=== PATIENT | male | born 1985 | race American Indian/Alaskan Native ===

== ENCOUNTER 2016-08-08 00:01 | Observation (INO) | payer MEDICAID ==
[2016-08-08 00:02] VITALS: BMI 22.9
[2016-08-08 00:21] VITALS: O2SAT 99
--- NOTE | 2016-08-08 02:45 | C.PDOC ---
History Of Present Illness Patient is a 30 year old male brought in by [facility] for public intoxication. Patient is walking and talking fine in ER. Denies any nausea, vomiting, diarrhea , or injury. Time Seen by Provider: 08/08/16 01:04 Chief Complaint (Nursing): Substance Abuse History Per: Patient History/Exam Limitations: no limitations, intoxication Onset/Duration Of Symptoms: Hrs Current Symptoms Are (Timing): Still Present Suicide/Self Injury Attempted (Context): None Modifying Factor(s): Alcohol Additional History Per: Law Enforcement Past Medical History Reviewed: Historical Data, Nursing Documentation, Vital Signs Vital Signs: Last Vital Signs Temp 97.2 F L 08/08/16 00:15 Pulse 78 08/08/16 00:15 Resp 20 08/08/16 00:15 BP 113/72 08/08/16 00:15 Pulse Ox 99 08/08/16 03:14 - [facility] Procedures DETOXIFICATION SERVICES FOR SUBSTANCE ABUSE TREATMENT (12/23/15) PSYCHIA INTERV/EVAL NEC (07/15/13) Family History: States: Unknown Family Hx - Social History Hx Tobacco Use: Yes Hx Alcohol Use: Yes Hx Substance Use: Yes (PCP) - Immunization History Hx Tetanus Toxoid Vaccination: No Hx Influenza Vaccination: No Hx Pneumococcal Vaccination: No Review Of Systems Except As Marked, All Systems Reviewed And Found Negative. Constitutional: Negative for: Fever, Chills Cardiovascular: Negative for: Chest Pain, Palpitations Respiratory: Negative for: Cough, Shortness of Breath Gastrointestinal: Negative for: Nausea, Vomiting Physical Exam - Physical Exam Appears: Well, Non-toxic, Other (ETOH on breath) Skin: Normal Color, Warm, Dry Head: Atraumatic, Normacephalic Oral Mucosa: Moist Chest: Symmetrical Cardiovascular: Rhythm Regular Respiratory: No Rales, No Rhonchi, No Wheezing Gastrointestinal/Abdominal: Soft, No Tenderness Neurological/Psych: Oriented x3, Normal Speech ED Course And Treatment O2 Sat by Pulse Oximetry: 99 (Room air) Pulse Ox Interpretation: Normal ED OBSERVATION Date of observation admission: 08/08/16 Time of observation admission: 00:00 - Observation admission statement Patient is being placed in observation because:: Acute alcohol intoxication - Goals of Observation Goals of observation are:: Sobriety - Progress Note Progress Note: 08/08/16 06:09 Patient is alert and oriented, steady gait, normal speech. he is ready to be d/ c home. Disposition - Disposition Disposition: HOME/ ROUTINE Disposition Time: 06:08 Condition: IMPROVED - Clinical Impression Clinical Impression: Alcohol abuse - Scribe Statement The provider has reviewed the documentation as recorded by the Scribandrew Levin All medical record entries made by the Scribe were at my direction and personally dictated by me. I have reviewed the chart and agree that the record accurately reflects my personal performance of the history, physical exam, medical decision making, and the department course for this patient. I have also personally directed, reviewed, and agree with the discharge instructions and disposition.
[2016-08-08 06:18] VITALS: BP 115/76; PULSE 82; RESP 18; TEMP 97.6
== END 2016-08-08 06:09 | disposition home or self-care (01) ==
LOC: C.ER 00:01 → C.9OBSV 03:13
PROVIDERS: ADMIT Emergency Medicine; ATTEND Emergency Medicine
DX: F10.129 Alcohol abuse with intoxication, unspecified (principal)
CPT/HCPCS: 99283; G0378

== ENCOUNTER 2016-08-11 01:51 | Emergency (ER) | payer MEDICAID, OTHER ==
[2016-08-11 01:51] VITALS: BMI 22.9
--- NOTE | 2016-08-11 02:54 | C.PDOC ---
History Of Present Illness 30 year old male presents to the ED via BLS for substance abuse. Patient admits he used PCP today and is requesting detox. He has no physical complaints at this time. Time Seen by Provider: 08/11/16 02:45 Chief Complaint (Nursing): Substance Abuse History Per: Patient History/Exam Limitations: no limitations Onset/Duration Of Symptoms: Hrs Current Symptoms Are (Timing): Still Present Suicide/Self Injury Attempted (Context): None Modifying Factor(s): Other (PCP) Past Medical History Reviewed: Historical Data, Nursing Documentation, Vital Signs Vital Signs: Last Vital Signs Temp 97.8 F 08/11/16 02:09 Pulse 88 08/11/16 02:09 Resp 20 08/11/16 02:09 BP 136/92 H 08/11/16 02:09 Pulse Ox 99 08/11/16 03:20 - Medical History PMH: No Chronic Diseases - [facility] Procedures DETOXIFICATION SERVICES FOR SUBSTANCE ABUSE TREATMENT (12/23/15) PSYCHIA INTERV/EVAL NEC (07/15/13) Family History: States: Unknown Family Hx - Social History Hx Tobacco Use: Yes Hx Alcohol Use: Yes Hx Substance Use: Yes (PCP) - Immunization History Hx Tetanus Toxoid Vaccination: No Hx Influenza Vaccination: No Hx Pneumococcal Vaccination: No Review Of Systems Constitutional: Positive for: Other (PCP detox). Negative for: Fever, Chills Cardiovascular: Negative for: Chest Pain, Palpitations Respiratory: Negative for: Cough, Shortness of Breath Gastrointestinal: Negative for: Nausea, Vomiting Musculoskeletal: Negative for: Neck Pain, Back Pain Physical Exam - Physical Exam Appears: Non-toxic, No Acute Distress Skin: Warm, Dry Head: Atraumatic, Normacephalic Eye(s): bilateral: Normal Inspection Oral Mucosa: Moist Neck: Supple Chest: Symmetrical, No Deformity Cardiovascular: Rhythm Regular Respiratory: No Accessory Muscle Use, No Rales, No Rhonchi, No Wheezing Extremity: Normal ROM Neurological/Psych: Oriented x3 ED Course And Treatment O2 Sat by Pulse Oximetry: 99 (Room air) Pulse Ox Interpretation: Normal Reevaluation Time: 05:33 Reassessment Condition: Improved ED OBSERVATION Discharge: Yes Date of observation admission: 08/11/16 Time of observation admission: 02:54 - Observation admission statement Patient is being placed in observation because:: Drug abuse Disposition Counseled Patient/Family Regarding: Studies Performed, Diagnosis, Need For Followup - Disposition Referrals: Ted Garzon MD [Staff Provider] - Disposition: HOME/ ROUTINE Disposition Time: 02:54 Condition: FAIR Instructions: Polysubstance Abuse (ED) - Clinical Impression Clinical Impression: PCP (phencyclidine) abuse - Scribe Statement The provider has reviewed the documentation as recorded by the Scribe Lamonte Monteiro Provider Attestation: All medical record entries made by the Scribe were at my direction and personally dictated by me. I have reviewed the chart and agree that the record accurately reflects my personal performance of the history, physical exam, medical decision making, and the department course for this patient. I have also personally directed, reviewed, and agree with the discharge instructions and disposition.
[2016-08-11 06:11] VITALS: BP 125/72; PULSE 82; RESP 16; TEMP 98.1; O2SAT 98
== END 2016-08-11 06:10 | disposition home or self-care (01) ==
LOC: C.ER 01:51
DX: F16.10 Hallucinogen abuse, uncomplicated (principal)

== ENCOUNTER 2017-11-09 02:33 | Emergency (ER) | payer MEDICAID ==
[2017-11-09 02:33] VITALS: BMI 22.9
--- NOTE | 2017-11-09 02:52 | C.PDOC ---
History Of Present Illness 31 y/o male is brought to ED by police. Patient states "I drank and dip." Patient is pleasant and cooperative. Denies trauma, injuries or any physical complaints. Time Seen by Provider: 11/09/17 02:51 Chief Complaint (Nursing): Substance Abuse History Per: Patient History/Exam Limitations: no limitations Onset/Duration Of Symptoms: Hrs Current Symptoms Are (Timing): Still Present Suicide/Self Injury Attempted (Context): None Modifying Factor(s): Alcohol Associated Symptoms: denies: Suicidal Thoughts, Suicidal Plan Involuntary Hold By: None Recent travel outside of the [place]: No Past Medical History Reviewed: Historical Data, Nursing Documentation, Vital Signs Vital Signs: Last Vital Signs Temp 99 F 11/09/17 02:40 Pulse 94 H 11/09/17 02:40 Resp 18 11/09/17 02:40 BP 111/63 11/09/17 02:40 Pulse Ox 97 11/09/17 03:04 - Medical History PMH: No Chronic Diseases - [facility] Procedures DETOXIFICATION SERVICES FOR SUBSTANCE ABUSE TREATMENT (12/23/15) PSYCHIA INTERV/EVAL NEC (07/15/13) Family History: States: Unknown Family Hx - Social History Hx Tobacco Use: Yes Hx Alcohol Use: Yes Hx Substance Use: Yes (PCP) - Immunization History Hx Tetanus Toxoid Vaccination: No (unkown when last shot was given) Hx Influenza Vaccination: No Hx Pneumococcal Vaccination: No Review Of Systems Constitutional: Negative for: Fever, Chills Gastrointestinal: Negative for: Nausea, Vomiting, Abdominal Pain, Diarrhea Skin: Negative for: Rash Neurological: Negative for: Weakness, Numbness Psych: Negative for: Anxiety Physical Exam - Physical Exam Appears: Non-toxic, No Acute Distress, Other (Pleasant and cooperative; no evidence of trauma ) Skin: Warm, Dry Head: Normacephalic Eye(s): bilateral: Normal Inspection Oral Mucosa: Moist Neck: Trachea Midline, Supple Chest: Symmetrical Cardiovascular: Rhythm Regular Respiratory: No Rales, No Rhonchi, No Wheezing Gastrointestinal/Abdominal: Soft, No Tenderness, No Distention Extremity: Normal ROM, No Deformity Extremity: Bilateral: Atraumatic, Normal Color And Temperature, Normal ROM Neurological/Psych: Oriented x3, Normal Speech (Speaking in full sentences ), Other (No focal deficits ) Gait: Steady ED Course And Treatment O2 Sat by Pulse Oximetry: 97 (RA) Pulse Ox Interpretation: Normal Disposition Counseled Patient/Family Regarding: Studies Performed, Diagnosis, Need For Followup - Disposition Referrals: Non [facility] Provider, [Primary Care Provider] - [facility] [Outside] Disposition: HOME/ ROUTINE Disposition Time: 02:51 Condition: FAIR Instructions: Alcohol Abuse and Alcoholism (DC), Polysubstance Abuse (DC) Forms: [facility] (Estonian) - Clinical Impression Clinical Impression: Drug abuse, Alcohol intoxication - Scribe Statement The provider has reviewed the documentation as recorded by the Scribandrew Romo All medical record entries made by the Scribe were at my direction and personally dictated by me. I have reviewed the chart and agree that the record accurately reflects my personal performance of the history, physical exam, medical decision making, and the department course for this patient. I have also personally directed, reviewed, and agree with the discharge instructions and disposition.
[2017-11-09 04:56] VITALS: BP 109/64; PULSE 84; RESP 18; TEMP 98.7; O2SAT 100
== END 2017-11-09 05:02 | disposition home or self-care (01) ==
LOC: SUPCPDRO 02:33 → C.ER 02:33
DX: F10.129 Alcohol abuse with intoxication, unspecified (principal); F19.10 Other psychoactive substance abuse, uncomplicated; Z72.0 Tobacco use

== ENCOUNTER 2018-01-09 00:36 | Emergency (ER) | payer MEDICAID ==
[2018-01-09 00:37] VITALS: BMI 22.9
[2018-01-09 00:48] VITALS: O2SAT 97
--- NOTE | 2018-01-09 03:04 | C.PDOC ---
History Of Present Illness 32 year old male with a Hx of ETOH abuse presents to the ER requesting detox from ETOH. Denies any complaints at this time. Time Seen by Provider: 01/09/18 00:49 Chief Complaint (Nursing): Substance Abuse History Per: Patient History/Exam Limitations: no limitations Onset/Duration Of Symptoms: Hrs Current Symptoms Are (Timing): Still Present Suicide/Self Injury Attempted (Context): None Modifying Factor(s): Alcohol Associated Symptoms: denies: Depression, Suicidal Thoughts Involuntary Hold By: None Recent travel outside of the [place]: No Past Medical History Reviewed: Historical Data, Nursing Documentation, Vital Signs Vital Signs: Last Vital Signs Temp 98.3 F 01/09/18 04:12 Pulse 61 01/09/18 04:12 Resp 16 01/09/18 04:12 BP 114/70 01/09/18 04:12 Pulse Ox 97 01/09/18 04:12 - Medical History PMH: Denies: Diabetes, Hepatitis, HIV, HTN, Seizures, Sexually Transmitted Disease - [facility] Procedures DETOXIFICATION SERVICES FOR SUBSTANCE ABUSE TREATMENT (12/23/15) PSYCHIA INTERV/EVAL NEC (07/15/13) Family History: States: Unknown Family Hx - Social History Hx Tobacco Use: Yes Hx Alcohol Use: Yes Hx Substance Use: Yes (PCP) - Immunization History Hx Tetanus Toxoid Vaccination: No (unkown when last shot was given) Hx Influenza Vaccination: No Hx Pneumococcal Vaccination: No Review Of Systems Constitutional: Negative for: Fever, Chills Cardiovascular: Negative for: Chest Pain, Palpitations Respiratory: Negative for: Cough, Shortness of Breath Gastrointestinal: Negative for: Nausea, Vomiting Physical Exam - Physical Exam Appears: Non-toxic, Other (ETOH on breath) Skin: Normal Color, Warm, Dry Head: Atraumatic, Normacephalic Eye(s): bilateral: Normal Inspection Oral Mucosa: Moist Chest: Symmetrical, No Tenderness Cardiovascular: Rhythm Regular Respiratory: Normal Breath Sounds, No Rales, No Rhonchi, No Wheezing Gastrointestinal/Abdominal: Soft, No Tenderness Neurological/Psych: Oriented x3, Normal Speech ED Course And Treatment O2 Sat by Pulse Oximetry: 97 (Room air) Pulse Ox Interpretation: Normal Progress Note: Patient was evaluated by disposal worker who advised patient that there are no detox beds available at this time, he was given information on other detox sites available. Patient is requesting to sleep for a while before discharge, will allow to sleep. Patient is awake, alert, and oriented, walking with a steady gait, vitals are stable, will discharge home. Disposition - Disposition Referrals: [facility] at [facility] [Outside] Disposition: HOME/ ROUTINE Disposition Time: 05:01 Condition: STABLE Additional Instructions: Please follow up with clinic Follow up with outpatient detox programs Return to ER if worse Instructions: Alcohol Abuse and Alcoholism (DC) Forms: [employer] (Omani) - Clinical Impression Clinical Impression: Alcohol intoxication - PA / ELECTRICIAN APPRENTICE / Resident Statement MD/DO has reviewed & agrees with the documentation as recorded. - Scribe Statement The provider has reviewed the documentation as recorded by the Scribe Mario Levin All medical record entries made by the Retaibe were at my direction and personally dictated by me. I have reviewed the chart and agree that the record accurately reflects my personal performance of the history, physical exam, medical decision making, and the department course for this patient. I have also personally directed, reviewed, and agree with the discharge instructions and disposition.
[2018-01-09 04:13] VITALS: BP 114/70; PULSE 61; RESP 16; TEMP 98.3
== END 2018-01-09 05:15 | disposition home or self-care (01) ==
LOC: SUPCPDRO 00:36 → C.ER 00:36
DX: F10.129 Alcohol abuse with intoxication, unspecified (principal); Y90.9 Presence of alcohol in blood, level not specified

== ENCOUNTER 2018-01-18 01:54 | Emergency (ER) | payer MEDICAID ==
[2018-01-18 01:54] VITALS: BMI 55.2
[2018-01-18 02:03] VITALS: RESP 16
--- NOTE | 2018-01-18 02:41 | C.PDOC ---
History Of Present Illness 34 y/o intoxicated male presents to the ED with complaints of "a headache for years" on arrival. Upon interviewing patient, he states Im okay and turned over to sleep. Patient is a poor historian. Otherwise patient offers no other complaints and is resting comfortably in stretcher. Time Seen by Provider: 01/18/18 02:05 Chief Complaint (Nursing): Headache History Per: Patient History/Exam Limitations: no limitations Onset/Duration Of Symptoms: Days Current Symptoms Are (Timing): Still Present Past Medical History Vital Signs: Last Vital Signs Temp 98.6 F 01/18/18 05:05 Pulse 80 01/18/18 05:05 Resp 16 01/18/18 05:05 BP 100/70 01/18/18 05:05 Pulse Ox 98 01/18/18 05:19 - Medical History PMH: Denies: Diabetes, Hepatitis, HIV, HTN, Seizures, Sexually Transmitted Disease - [facility] Procedures DETOXIFICATION SERVICES FOR SUBSTANCE ABUSE TREATMENT (12/23/15) PSYCHIA INTERV/EVAL NEC (07/15/13) Family History: States: Unknown Family Hx - Social History Hx Tobacco Use: Yes Hx Alcohol Use: Yes Hx Substance Use: Yes (PCP, marijuana) - Immunization History Hx Tetanus Toxoid Vaccination: No (unkown when last shot was given) Hx Influenza Vaccination: No Hx Pneumococcal Vaccination: No Review Of Systems Except As Marked, All Systems Reviewed And Found Negative. Constitutional: Negative for: Fever, Chills Respiratory: Negative for: Shortness of Breath Gastrointestinal: Negative for: Nausea, Vomiting, Diarrhea Neurological: Positive for: Headache. Negative for: Weakness, Numbness Physical Exam - Physical Exam Appears: No Acute Distress, Other (+Alcohol on breath) Skin: Normal Color, Warm, No Rash, No Ecchymosis Head: Atraumatic, Normacephalic, No Swelling (or hematoma) Eye(s): bilateral: Normal Inspection, PERRL Neck: Normal ROM, Supple Chest: Symmetrical Cardiovascular: Rhythm Regular Respiratory: Normal Breath Sounds, No Rhonchi, No Wheezing Gastrointestinal/Abdominal: Soft, No Tenderness, No Distention Extremity: Bilateral: Atraumatic, Normal Color And Temperature Neurological/Psych: Normal Speech, Other (Sleeping but arousable to verbal and tactile stimuli) ED Course And Treatment O2 Sat by Pulse Oximetry: 98 (RA) Pulse Ox Interpretation: Normal Progress Note: Accucheck done, blood sugar is 80. Patient is resting comfortably in stretcher, no acute distress. Will reassess for clinical sobriety. 0510- Pt woke up and walked down long hallway to restroom with steady gait. repeat vitals remained stable and pt is cleared for discharge Disposition Counseled Patient/Family Regarding: Diagnosis, Need For Followup - Disposition Disposition: HOME/ ROUTINE Disposition Time: 05:18 Condition: STABLE Instructions: Alcohol Abuse and Alcoholism (DC) Forms: [employer] ([place]) - Clinical Impression Clinical Impression: Alcohol use - PA / ROASTMASTER / Resident Statement MD/DO has reviewed & agrees with the documentation as recorded. - Scribe Statement The provider has reviewed the documentation as recorded by the Scribe (Angela Wells) All medical record entries made by the Scribe were at my direction and personally dictated by me. I have reviewed the chart and agree that the record accurately reflects my personal performance of the history, physical exam, medical decision making, and the department course for this patient. I have also personally directed, reviewed, and agree with the discharge instructions and disposition.
[2018-01-18 05:06] VITALS: BP 100/70; PULSE 80; TEMP 98.6
[2018-01-18 05:19] VITALS: O2SAT 98
== END 2018-01-18 05:35 | disposition home or self-care (01) ==
LOC: C.ER 01:54
DX: F10.929 Alcohol use, unspecified with intoxication, unspecified (principal); Y90.9 Presence of alcohol in blood, level not specified

== ENCOUNTER 2018-03-17 00:09 | Emergency (ER) | payer MEDICAID ==
[2018-03-17 00:09] VITALS: BMI 55.2
[2018-03-17 00:24] VITALS: BP 120/92; PULSE 76; RESP 20; TEMP 98.6; O2SAT 97
--- NOTE | 2018-03-17 01:15 | C.PDOC ---
History Of Present Illness 32 year old male presents to the ER for ETOH use tonight. Patient has not complaints at this time, he does not want to see a doctor and is requesting to be discharged. Time Seen by Provider: 03/17/18 01:08 Chief Complaint (Nursing): Trauma History Per: Patient History/Exam Limitations: no limitations Onset/Duration Of Symptoms: Hrs Current Symptoms Are (Timing): Still Present Suicide/Self Injury Attempted (Context): None Modifying Factor(s): Alcohol Involuntary Hold By: None Recent travel outside of the [place]: No Past Medical History Reviewed: Historical Data, Nursing Documentation, Vital Signs Vital Signs: Last Vital Signs Temp 98.6 F 03/17/18 00:19 Pulse 76 03/17/18 00:19 Resp 20 03/17/18 00:19 BP 120/92 H 03/17/18 00:19 Pulse Ox 97 03/17/18 00:19 - Medical History PMH: Denies: Diabetes, Hepatitis, HIV, HTN, Seizures, Sexually Transmitted Disease - [facility] Procedures DETOXIFICATION SERVICES FOR SUBSTANCE ABUSE TREATMENT (12/23/15) PSYCHIA INTERV/EVAL NEC (07/15/13) Family History: States: Unknown Family Hx - Social History Hx Tobacco Use: Yes Hx Alcohol Use: Yes Hx Substance Use: Yes (PCP) - Immunization History Hx Tetanus Toxoid Vaccination: No (unkown when last shot was given) Hx Influenza Vaccination: No Hx Pneumococcal Vaccination: No Review Of Systems Constitutional: Negative for: Fever, Chills Cardiovascular: Negative for: Chest Pain, Palpitations Respiratory: Negative for: Cough, Shortness of Breath Gastrointestinal: Negative for: Nausea, Vomiting Neurological: Negative for: Weakness, Numbness Physical Exam - Physical Exam Appears: Non-toxic, Other (No sign of injury, ETOH on breath) Skin: Normal Color, Warm, Dry Head: Atraumatic, Normacephalic Eye(s): bilateral: Normal Inspection Oral Mucosa: Moist Neck: Normal, Supple Chest: Symmetrical, No Tenderness Cardiovascular: Rhythm Regular Respiratory: Normal Breath Sounds, No Rales, No Rhonchi, No Wheezing Gastrointestinal/Abdominal: Soft, No Tenderness Extremity: Normal ROM (x4) Neurological/Psych: Oriented x3, Normal Speech Gait: Steady ED Course And Treatment O2 Sat by Pulse Oximetry: 97 (Room air) Pulse Ox Interpretation: Normal Medical Decision Making Medical Decision Making: pt denies injury or pain per triage, minor injury 4 days ago no head trauma alcohol abuse, stable gait wants immediate d/c to street. Disposition Doctor Will See Patient In The: Office Counseled Patient/Family Regarding: Studies Performed, Diagnosis - Disposition Disposition: HOME/ ROUTINE Disposition Time: 01:14 Condition: GOOD Forms: [employer] (Lithuanian) - Clinical Impression Clinical Impression: Alcohol abuse - Scribe Statement The provider has reviewed the documentation as recorded by the Scribandrew Levin All medical record entries made by the Retaibandrew were at my direction and personally dictated by me. I have reviewed the chart and agree that the record accurately reflects my personal performance of the history, physical exam, medical decision making, and the department course for this patient. I have also personally directed, reviewed, and agree with the discharge instructions and disposition.
== END 2018-03-17 01:20 | disposition home or self-care (01) ==
LOC: C.ER 00:09
DX: F10.10 Alcohol abuse, uncomplicated (principal); Y90.9 Presence of alcohol in blood, level not specified

== ENCOUNTER 2018-06-04 23:28 | Emergency (ER) | payer MEDICAID ==
[2018-06-04 23:28] VITALS: BMI 55.2
[2018-06-05 00:09] VITALS: RESP 18
== END 2018-06-05 00:07 | disposition left against medical advice (07) ==
LOC: C.ER 23:28
DX: Z02.89 Encounter for other administrative examinations (principal); J00 Acute nasopharyngitis [common cold]